=== PATIENT | male | born 1990 | race Caucasian/White ===

== ENCOUNTER 2016-12-06 12:28 | Emergency (ER) | payer MEDICAID, OTHER ==
[~2016-12-06] VITALS: Ht 180.3 cm; Wt 75.0 kg
[~2016-12-06 12:28] MED LIST: LACO100T PO; LORA0.5T PO; ZONISAMIDE
[2016-12-06 12:37] VITALS: BP 126/76
[2016-12-06] MEDS ORDERED: LORazepam 0.5MG TABLET ONE (12:58)
[2016-12-06] MEDS ORDERED: LORazepam 1MG TABLET PO ONE (13:00)
== END 2016-12-06 13:02 | disposition home or self-care (01) ==
LOC: ED 12:53
DX: G40.909 Epilepsy, unspecified, not intractable, without status epilepticus (principal)
CPT/HCPCS: 93005; 99283

== ENCOUNTER 2016-12-22 19:34 | Emergency (ER) | payer MEDICAID ==
[~2016-12-22] VITALS: Ht 180.3 cm; Wt 75.0 kg
[2016-12-22 19:37] VITALS: BP 147/88
[2016-12-22] MEDS ORDERED: IBUPROFEN 200 MG TABLET ONE (20:25)
[2016-12-22] MEDS ORDERED: IBUPROFEN 200 MG TABLET PO ONE (20:30)
== END 2016-12-22 20:43 | disposition home or self-care (01) ==
LOC: ED 20:37
DX: S93.602A Unspecified sprain of left foot, initial encounter (principal); X50.1XXA Overexertion from prolonged static or awkward postures, initial encounter; Y93.89 Activity, other specified; Y92.328 Other athletic field as the place of occurrence of the external cause; Y99.9 Unspecified external cause status
CPT/HCPCS: 99284

== ENCOUNTER 2017-06-07 15:30 | Emergency (ER) | payer MEDICAID, OTHER ==
[~2017-06-07] VITALS: Ht 182.9 cm; Wt 82.4 kg
[2017-06-07 15:40] VITALS: BP 138/78
[2017-06-07] MEDS ORDERED: DIPH,PERTUSS(ACELL),TET VAC/PF 0.5 ML IM-VACC ONE ×2 (16:00→16:02)
[2017-06-07] MEDS ORDERED: IBUPROFEN 200 MG TABLET PO ONE (16:00)
[2017-06-07] MEDS ORDERED: IBUPROFEN 200 MG TABLET ONE (16:01)
== END 2017-06-07 17:11 | disposition home or self-care (01) ==
LOC: ED 17:05
DX: S91.332A Puncture wound without foreign body, left foot, initial encounter (principal); W45.0XXA Nail entering through skin, initial encounter; Y93.89 Activity, other specified; Y99.9 Unspecified external cause status; Y92.89 Other specified places as the place of occurrence of the external cause
CPT/HCPCS: 90471; 90715